=== PATIENT | male | born 1965 | race Caucasian/White ===

== ENCOUNTER 2021-04-22 12:52 | Outpatient (REF) | payer OTHER, SELFPAY ==
[2021-04-22 14:27] LABS: Appearance Urine CLEAR; Color Urine YELLOW; Glucose Urine UA NEG (NEG); Leukocyte Esterase Urine NEG (NEG); Nitrite Urine NEG (NEG); PH 5.5 (5.0-8.0); Specific Gravity - Urine >= 1.030 (1.005-1.025); Urine Blood TRACE (NEG); Urine Ketones NEG (NEG); Urine Protein NEG (NEG-TRACE)
[2021-04-22 14:35] LABS: Mucus Urine TRACE /LPF; RBC Urine 0-2 /HPF (0); WBC Urine 0-2 /HPF (0-4)
[2021-04-22 14:42] LABS: Alanine Aminotransferase 24 U/L (0-40); Albumin Level 4.3 g/dL (3.5-5.0); Alkaline Phosphatase 80 U/L (39-117); Anion Gap 13 (12-20); Aspartate Amino Transferase 22 U/L (5-37); Bilirubin Total 0.2 mg/dL (0.0-1.0); Blood Urea Nitrogen 15 mg/dL (9-16); Calcium 9.5 mg/dL (8.4-10.2); Carbon Dioxide 24 mmol/L (22-29); Chloride 103 mmol/L (96-108); Cholesterol 302 mg/dL; Estimated Glomerular Filt Rate > 60; Glucose Fasting 95 mg/dL (60-99); HDL Cholesterol 72 mg/dL; LDL Cholesterol Calculated 158 mg/dl; Potassium 4.4 mmol/L (3.3-5.1); Sodium 136 mmol/L (135-145); Total Protein 7.1 g/dL (6.5-8.0); Triglycerides 360 mg/dL
[2021-04-22 15:02] LABS: Prostate Specific Antigen Scr 0.25 ng/mL (<0.05-4.0); TSH reflex Free T4 0.44 uIU/mL (0.32-4.0)
[2021-04-22 15:27] LABS: Creatinine Urine 137.92 mg/dL; Microalbum/Creatinine Ratio Ur 11.6 ug/mg cr
== END 2021-04-22 12:53 | disposition home or self-care (01) ==
LOC: HO.WFDLDS 12:52
PROVIDERS: Visit Provider Family Medicine
DX: Z00.00 Encounter for general adult medical examination without abnormal findings (principal); Z12.5 Encounter for screening for malignant neoplasm of prostate; I10 Essential (primary) hypertension
CPT/HCPCS: 36415; 80053; 80061; 81001; 82043; 84153; 84443

== ENCOUNTER 2021-08-31 11:02 | Outpatient (REF) | payer OTHER, SELFPAY ==
[2021-08-31 14:26] LABS: Cholesterol 317 mg/dL; HDL Cholesterol 66 mg/dL; Triglycerides 563 mg/dL
== END 2021-08-31 11:03 | disposition home or self-care (01) ==
LOC: HO.WFDLDS 11:02
PROVIDERS: Visit Provider Family Medicine
DX: Z00.00 Encounter for general adult medical examination without abnormal findings (principal)
CPT/HCPCS: 36415; 80061

== ENCOUNTER 2023-10-14 13:57 | Outpatient (AMB) | payer BC, SELFPAY ==
--- NOTE | 2023-10-14 14:13 | A.OFFPC_ITS ---
Vital Signs 10/14/23 14:14 Height 5 ft 9 in Weight 182 lb 8 oz BMI 26.9 BP 100/56 L Blood Pressure Location Rt brachial Position Sitting Respiration 16 Pulse 87 Pulse Source Pulse Oximeter Temp 96.5 F L Temp Source Tympanic Pulse Oximetry (%) 97 Oxygen Delivery Method Room Air Intake Visit Reasons: hdfu and fam med leave act paperwork Intake Note: FMLA paper work Allergies No Known Allergies Allergy (Verified 10/14/23 14:13) Tobacco use date assessed: 03/16/22 HPI hdfu and fam med leave act paperwork HPI Details Pt was admitted to [facility] on 09/29/2023 to 10/07/2023 for Suicidal ideations with a plan, Alcohol abuse, depression/Anxiety with acute adjustment disorder. Discharged on: Sertraline 100 mg daily gabapentin 300 mg b.i.d. nicotine patch 21 mg daily Lipitor 10 mg daily trazodone 50 mg at bedtime naltrexone 50 mg daily He notes he has an appt. with a mental health provider late December. He states he has not had a drink recently. Notes ongoing brain fogginess and poor motivation. Denies any SI/HI today. HPI Comments History of Present Illness Details Documentation assistance for Mekhi Muñoz MD, was provided by Max Brooks, [employer] on 10/14/2023 at 2:45 PM EST. I, Dr. Muñoz, have read, observed, and verified documentation. FORMERLY [facility] Social History Housing: House Patient Tobacco Use Status: Current everyday Tobacco user Cigarette Packs Per Day: 1 e-Cigarette/Vaping Use: Never Used Second Hand Smoke Exposure: No service: Yes Current occupational status: employed Current occupational exposures/hazards: No Cognitive needs: No Hearing needs: No Vision needs: No Questionnaire LORRAINE-7 AMB Questionnaire LORRAINE-7 Date LORRAINE - 7 assessed: 08/18/21 Source: Developed by Drs. Bharat Hassan, Rachana Casas, Jose Madden and colleagues, with an educational charlette from [employer]. Review of Systems Const Denies chills, Denies fatigue, Denies fever(s), Denies headache(s) and Denies weakness ENT Denies dizziness and Denies headache(s) Card Denies chest pain, Denies lightheadedness, Denies dyspnea and Denies other (Palpitations) Resp Denies cough, Denies dyspnea, Denies wheezing and Denies other ( shortness of breath) Musc Denies numbness and Denies tingling Neuro Denies dizziness, Denies headache(s), Denies numbness, Denies tingling, Denies paresthesias and Denies weakness Psych Denies anxiety and Reports depression Endo Denies fatigue Aller/Immun Denies wheezing Physical exam (Primary Care) Vital Signs: Last Vital Signs Temp 96.5 F L 10/14/23 14:14 Pulse 87 10/14/23 14:14 Resp 16 10/14/23 14:14 BP 100/56 L 10/14/23 14:14 Pulse Ox 97 10/14/23 14:14 Oxygen Delivery Method Room Air 10/14/23 14:14 BMI result Body Mass Index 26.9 Tobacco/Smoking Status: Tobacco use Status Tobacco use date assessed 03/16/22 10/14/23 14:16 Patient Tobacco Use Status Current everyday Tobacco 10/14/23 14:16 e-Cigarette/Vaping Use Never Used 10/14/23 14:16 Const General: no acute distress and well developed Nutritional Appearance: well nourished Orientation/consciousness: patient oriented x3 HENMT Head: Yes normocephalic and Yes atraumatic Eyes General: appearance normal, both eyes and all related structures Pupils: Equal, round and reactive pupils present EOM: EOMs intact bilaterally Resp Effort & Inspection: normal respiratory effort Auscultation: clear to auscultation bilaterally Cardio Rate: regular rate Rhythm: regular rhythm Heart sounds: S1 normal heart sound present, S2 normal heart sound present, no gallops, no murmurs and no rubs Neuro General: patient oriented x3 and gait normal Cranial nerves: Yes Equal, round and reactive pupils present Psych Affect: normal affect Assessment and Plan Assessment & Plan (1) Depression with anxiety: Code(s): F41.8 - Other specified anxiety disorders Plan: Severe?depression?with?recent?SI?and?plan. Patient?was?admitted?from?September??to?September??as?inpatient. Medications: Sertraline 100 mg daily gabapentin 300 mg b.i.d. nicotine patch 21 mg daily Lipitor 10 mg daily trazodone 50 mg at bedtime naltrexone 50 mg daily Continue?as?prescribed. He?has?an?appointment?with?psychiatrist/therapist?but?not?until?December. I?am?referring?him?to?the?[facility]?outpatient?psychiatry?consult?team. I?am?keeping?him?out?of?work?through?December?so?he?has?time?to?be?established?w ith?permanent?behavioral?health?team. Advised?he?should?consider?an intensive?outpatient?partial?program?and?he?can?discuss?this?further?with?the?Ps ychiatry?consult?team Filled?out?FMLA?paperwork?to?keep?patient?out?through?the?end?of?December. (2) Alcohol abuse: Code(s): F10.10 - Alcohol abuse, uncomplicated Plan: Continue?naltrexone Follow-up?with?behavioral?health?team Remain?abstinent (3) Suicidal ideation: Code(s): R45.851 - Suicidal ideations Plan: As?above No?current?SI?or?plan Contracts?for?safety Orders: Referrals Psychiatry Outpatient Consultation Service F10.10 - Alcohol abuse, uncomplicated, F41.8 - Other specified anxiety disorders, R45.851 - Suicidal ideations Coding Level of Care Code Est Pt Level 4 (02219) Diagnoses Depression with anxiety F41.8 Alcohol abuse F10.10 Suicidal ideation R45.851
[2023-10-14 14:14] VITALS: BP 100/56; PULSE 87; RESP 16; TEMP 35.8; O2SAT 97; BMI 26.9
== END 2023-10-14 15:14 | disposition home or self-care (01) ==
PROVIDERS: PCP Family Medicine; Visit Provider Family Medicine
DX: F41.8 Other specified anxiety disorders (principal); F10.10 Alcohol abuse, uncomplicated; R45.851 Suicidal ideations
CPT/HCPCS: 99214

== ENCOUNTER 2023-11-01 08:45 | Outpatient (RCR) | payer BC, SELFPAY ==
[2023-10-19 09:43] VITALS: BMI 25.6
[2023-10-19 11:45] VITALS: BP 132/77; PULSE 64
--- NOTE | 2023-10-19 13:35 | PC.ADMIT ---
Patient is a 57 year old single male who was referred to [facility] by [employer] employee Lita Perdomo secondary to depression and anxiety. Patient reports thoughts to drive car into concrete however denied any plans of intention of doing this. Patient recently discharged from [facility] where he was admitted from 09/28-10/07/23 secondary to SI with a plan after break up with partner in February 2023 with partner moving out of his house in July 2023 after being together for 18 years. Patient struggling with chronic alcohol use and reports use increased when he and his partner where starting to have relationship issues 4 years ago. He stopped using alcohol September 27, 2023. At that time he was drinking 8-10 beers daily and taking 1-2 shots of whiskey once or twice a week. Patient is on MAT with Naltrexone and stated this medication has helped him stop using. He currently is not involved in AA however is thinking about going for more support. Patient reports prior to hospitalization he googled [employer] Suicide Hotline d/t having suicidal thoughts and they recommended he go to the emergency room for a crisis evaluation which he did thus was admitted to a behavioral health unit. He stated he did not experience any sxs of withdrawal from alcohol while in the hospital. Denied any tremors, diaphoresis, headaches, nausea or vomiting, no AH, No VH. He denied any current withdrawal sxs. VS BP 132/77 P 64. He is currently on a DOUG from work to work on mental health. Would like to go back to work as soon as he can. Stated he has been out of work since September 29, 2023. Stated his work is supportive regarding his mental health issues. He works as a trailer truck driver. Patient is alert and oriented x4. Calm and cooperative. His thoughts are logical and clear. Regarding SI patient denied any current thoughts. He stated he has had thoughts to drive his car into a concrete wall. Denied having any plans of intention to do this. Reports when he has those thoughts he tells himself to, knock it off you have come this far . He was given a copy of his safety plan if needed. Medications reconciled with patient and patient's pharmacy. He also brought in his prescription bottles to verify his medications. He stated in the process he dropped some of the medication pills accidentally down the sink drain and now is out of Sertraline. He is going to talk to [facility] prescriber about filling this tomorrow. He reports taking medications as prescribed.
--- NOTE | 2023-10-20 15:07 | HO.PHP ---
Pt's case has been opened and reviewed in treatment team.
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
--- NOTE | 2023-10-26 14:06 | HO.PHP ---
PHP staff member faxed over a referral for OP therapy and med management for Bartolo. PHP staff member is awaiting a scheduled appointment dates and times.
--- NOTE | 2023-10-28 09:55 | HO.PHP ---
PHP staff member received an email from [facility] with Bartolo's after care appointments for OP therapy and Med Management. Bartolo's OP therapy intake appointment is scheduled for November 08, 2023 at 10 AM with Sadia Rubalcava at [address] [place] [address]. Bartolo's med provider appointment is scheduled for December 07, 2023 at 9 AM with Bethany Real at [address] [place] [address], [place], [place].
--- NOTE | 2023-10-28 21:13 | HO.PHPPROGNO ---
Subjective Subjective Date of Service: 10/27/23 Reason For Visit: MDD,AUD Interim History: Patient seen for follow-up. No acute issues or concerns reported by staff. It's been okay . Patient started on Wellbutrin, he noticed feeling a little sped up the first day starting the medication, more alert, mind was racing for a few hours but eventually abated. Denies any issues with physical symptoms or anxiety. Says these effects were less noticable the next day, and since he feels he has adjusted. He was mindful after that first day to eat adequately as we had initially discussed and that seemed to help. He says he feels more level and calmer in my thoughts . When asked about any change in anger or irritability he says there are 3 people in the group that really annoy me but that's not unusual for me. People annoy me . Denies any aggressive ideation or HI. He feels more awake and energetic through the day which is good . He endorses some difficulty falling asleep, continues to take trazodone 50 mg at night (around 9 or 10pm) and says once he falls asleep he has been sleeping well, getting a full 8 hours. Denies any AH or VH. Physically feels fine, no complaints. Med compliant, continues on naltrexone. Occasional cravings not too bad , a few times a week at most, but says he feels capable of managing and does not feel he is going to relapse. Says he tries not to think too far ahead. He denies any other substance use. He also says returning to work provides some guardrails and structure. He denies any stressors at his job and says I'm good at my job. They can't wait to have me back . Medication Compliance: Yes Side effects from medications: Yes (sexual side effects from SSRI, thus far not improved with WB) Attending Groups: Yes Review of Systems Acute medical concerns: No Mental Status Exam Mental Status Exam Narrative: Alert, oriented, in no acute distress. Less guarded, more engaged. Cooperative. Normal gait, no tics or tremors. Eye contact maintained. Mood less depressed, affect less constricted, no irritability noted. Speech normal. Thought process linear, coherent. Thought content related to stressors, occasional cravings, denies SI or HI. No paranoia or delusional content elicited. No evidence of psychosis. Insight and judgment - fair but adequate. Diagnostics Vital Signs (24Hr): BMI result Body Mass Index 25.6 Assessment & Plan Assessment & Plan (1) Alcohol dependence: Status: Acute Code(s): F10.20 - Alcohol dependence, uncomplicated (2) MDD (major depressive disorder), recurrent severe, without psychosis: Status: Acute Code(s): F33.2 - Major depressive disorder, recurrent severe without psychotic features (3) Chronic post-traumatic stress disorder (PTSD): Status: Acute Code(s): F43.12 - Post-traumatic stress disorder, chronic (4) LORRAINE (generalized anxiety disorder): Status: Acute Code(s): F41.1 - Generalized anxiety disorder Plan continue Wellbutrin XL 150 mg qam continue other regular medications? continue Zoloft 100 mg qd may increase trazodone to 50-100 mg qhs prn, try moving up dose 1-2 hrs earlier continue gabapentin 300 mg BID continue naltrexone 50 mg qd continue atorvastatin 10 mg qhs nicotine patch routine lab work pending UDS as indicated continue to monitor Patient educated on: diagnosis, medication risk/benefits and substance abuse Informed Consent: understands Reason for contiued partial hosp. stay Substantial Risk for: med/psych decompensation Certification I certify that partial hospital treatment is medically necessary due to the symptoms and problems resulting from the patient's mental illness and the failure to treat the patient at the partial hospital level of care would likely result in the patient requiring inpatient psychiatric care which could not be prevented at a less intensive level of care. Total time managing care of this patient today _30___ minutes. Discharge Plan Discharge Attending provider: Aliya Blake Additional Instructions: Bartolo's OP therapy intake appointment is scheduled for November 08, 2023 at 10 AM with Sadia Rubalcava at [address], [place]. Bartolo's med provider appointment is scheduled for December 07, 2023 at 9 AM with Bethany Real at [address] [place] [address]. Medications: New polyethylene glycol 3350 [Miralax] 17 gram/dose powder 17 g PO DAILY Qty: 119 0RF Continued atorvastatin 10 mg tablet 10 mg PO BEDTIME nicotine 21 mg/24 hr patch 24 hour 1 patch topical DAILY naltrexone 50 mg tablet 50 mg PO DAILY Qty: 30 0RF sertraline 100 mg tablet 100 mg PO DAILY Qty: 30 0RF gabapentin 300 mg capsule 300 mg PO BID Qty: 30 0RF bupropion HCl [Wellbutrin XL] 150 mg tablet extended release 24 hr 150 mg PO QAM Qty: 30 0RF Rx Instructions: take in the AM with food (and avoid coffee) for at least the first week Changed trazodone 50 mg tablet 50 - 100 mg PO BEDTIME PRN (Reason: insomnia) Qty: 30 0RF Stand Alone Forms: Patient Portal Discharge page Print Language: Bermudian
--- NOTE | 2023-11-01 21:29 | P.PNPSP_ITS ---
Subjective Subjective Date of Service: 11/01/23 Reason For Visit: MDD,AUD Interim History: Patient seen for follow-up, anticipating discharge at the end of program today.? Reports no acute issues or concerns. Medication compliant, medications well- tolerated. Denies any adverse effects.?He voices appreciation for the staff and for the program. I didn't 'get it' when I started here. Seemed I was starting in the middle of things...kind of frustrating. But eventually I caught on and now I see how it all works... it's been really helpful . He says he was able to get his thoughts and feelings out and talk things through so it was good . He has found the Wellbutrin to be helpful with his overall mood, denies any depression, improvements in energy, motivation and feeling more alert and involved with what's going on around him. Denies any adverse effects. He continues to endorse sexual dysfunction which he has been experiencing since being on the ZOloft. He is encouraged to revisit this issue with his new provider and they might consider decreasing the dose to see if this helps, or possibly transitioning him onto more of the Wellbutrin and less Zoloft if tolerated. He denies any alcohol use in the interim. Denies cravings at this time. He recognizes he has a ways to go in recovery. He is eager to return to work and will be reaching out to his PCP (who submitted the FMLA) for a return to work letter. Mood is stable.? Denies any hopelessness or SI. Denies thoughts of harming self or others at this time. Denies any aggressive ideation or HI. Denies any paranoia or AH or VH. Sleep, appetite, energy stable. Medication Compliance: Yes Side effects from medications: No Attending Groups: Yes Review of Systems Acute medical concerns: No Mental Status Exam Mental Status Exam Narrative: Alert, oriented, in no acute distress. Calm, cooperative. Mood stable, affect appropriate. Speech normal. Thought process linear, coherent, more goal- directed. Thought content related to stressors, future-oriented, denies any helplessness, hopelessness or SI.? No aggressive ideation or HI. No paranoia or delusional content elicited. No evidence of psychosis. Insight and judgment fair-good. Diagnostics Vital Signs (24Hr): BMI result Body Mass Index 25.6 Assessment & Plan Assessment & Plan (1) Alcohol dependence: Status: Acute Code(s): F10.20 - Alcohol dependence, uncomplicated (2) MDD (major depressive disorder), recurrent severe, without psychosis: Status: Acute Code(s): F33.2 - Major depressive disorder, recurrent severe without psychotic features (3) Chronic post-traumatic stress disorder (PTSD): Status: Acute Code(s): F43.12 - Post-traumatic stress disorder, chronic (4) LORRAINE (generalized anxiety disorder): Status: Acute Code(s): F41.1 - Generalized anxiety disorder Plan Discharge from PHP cont Wellbutrin XL 150 mg qam continue other regular medications? continue Zoloft 100 mg qd continue trazodone 50 mg qhs continue gabapentin 300 mg BID continue naltrexone 50 mg qd continue atorvastatin 10 mg qhs nicotine patch Routine lab work pending and was not done Safety planning reviewed Will defer further medication management to outpatient provider - new psych provider appointment on 12/06 Patient at psychiatric baseline, patient is aware to call [facility] if refills needed prior to 12/06 Discharge paperwork signed and given to patient, copy sent for scanning to chart Patient educated on: diagnosis, medication risk/benefits and substance abuse Informed Consent: understands Reason for contiued partial hosp. stay Substantial Risk for: stable for discharge Certification I certify that partial hospital treatment is medically necessary due to the symptoms and problems resulting from the patient's mental illness and the failure to treat the patient at the partial hospital level of care would likely result in the patient requiring inpatient psychiatric care which could not be prevented at a less intensive level of care. Total time managing care of this patient today _30___ minutes. Discharge Plan Discharge Attending provider: Aliya Blake Additional Instructions: [facility] therapy intake appointment is scheduled for November 08, 2023 at 10 AM with Sadia Rubalcava at [address] [facility], [place], [place]. [facility] med provider appointment is scheduled for December 07, 2023 at 9 AM with Bethany Real at [address] [place] [address]. Medications: New polyethylene glycol 3350 [Miralax] 17 gram/dose powder 17 g PO DAILY Qty: 119 0RF Continued atorvastatin 10 mg tablet 10 mg PO BEDTIME nicotine 21 mg/24 hr patch 24 hour 1 patch topical DAILY naltrexone 50 mg tablet 50 mg PO DAILY Qty: 30 0RF sertraline 100 mg tablet 100 mg PO DAILY Qty: 30 0RF gabapentin 300 mg capsule 300 mg PO BID Qty: 30 0RF bupropion HCl [Wellbutrin XL] 150 mg tablet extended release 24 hr 150 mg PO QAM Qty: 30 0RF Rx Instructions: take in the AM with food (and avoid coffee) for at least the first week Changed trazodone 50 mg tablet 50 - 100 mg PO BEDTIME PRN (Reason: insomnia) Qty: 30 0RF Stand Alone Forms: Patient Portal Discharge page Print Language: Azeri
== END 2023-11-01 23:59 | disposition home or self-care (01) ==
LOC: HO.PHPA 08:45
PROVIDERS: Visit Provider Psychiatry & Neurology Psychiatry
DX: F33.2 Major depressive disorder, recurrent severe without psychotic features (principal); F43.12 Post-traumatic stress disorder, chronic; F41.1 Generalized anxiety disorder; F10.20 Alcohol dependence, uncomplicated; Z79.899 Other long term (current) drug therapy
CPT/HCPCS: 90791; 90853

== ENCOUNTER 2023-11-04 13:45 | Outpatient (AMB) | payer BC, SELFPAY ==
--- NOTE | 2023-11-04 13:40 | MHC.PC.OV ---
Vital Signs 11/04/23 13:44 Height 5 ft 9 in Weight 181 lb 2 oz BMI 26.7 BP 100/60 Blood Pressure Location Lt brachial Position Sitting Respiration 10 L Pulse 96 Pulse Source Pulse Oximeter Temp 97.7 F Temp Source Oral Pulse Oximetry (%) 96 Oxygen Delivery Method Room Air Intake Visit Reasons: f/u depression, labs Intake Note: depression f/u Allergies No Known Allergies Allergy (Verified 11/04/23 13:43) Medication List - Last Reconciled 11/04/23 by Mekhi Muñoz MD atorvastatin 10 mg PO BEDTIME bupropion HCl XL (Wellbutrin XL) 150 mg PO QAM gabapentin 300 mg PO BID naltrexone 50 mg PO DAILY nicotine 1 patch topical DAILY polyethylene glycol 3350 (Miralax) 17 grams PO DAILY sertraline 100 mg PO DAILY trazodone 50 - 100 mg (1 - 2 x 50 mg) PO BEDTIME PRN Tobacco use date assessed: 03/16/22 HPI f/u depression, labs HPI Details 58 y/o male presents to f/u anxiety/depression. Has had severe depression with recent SI and plan. No recent labs to review. Continues taking bupropion 150mg, sertraline 100mg daily and trazodone for mood. PHQ-9 7, LORRAINE-7 14 today. Pt has completed 10 day partial program. Has an intake with his new therapist in November and appt. with psychiatrist in December 06. Reports he has been having some ED. He notes he has not had a drink since September. HPI Comments History of Present Illness Details Documentation assistance for Mekhi Muñoz MD, was provided by Max Brooks,? Policy Services Representative on 11/04/2023 at 2:17 PM EST. I, Dr. Muñoz, have read, observed, and verified documentation. [facility] Medical History (Updated 11/04/23 @ 14:12 by Max Brooks) Concussion Elevated cholesterol Frequent headaches Surgical History (Updated 10/19/23 @ 09:42 by Kim Tom RN) H/O hand surgery Social History Household Members: Other Household Members Other:: His dog Housing: House Comment: D/C 10/31 Patient Tobacco Use Status: Current everyday Tobacco user Cigarette Packs Per Day: 1 e-Cigarette/Vaping Use: Never Used Second Hand Smoke Exposure: No service: Yes Current occupational status: employed Current occupational exposures/hazards: No Cognitive needs: No Hearing needs: No Vision needs: No Questionnaire PHQ-9 Over the last 2 weeks, how often have you been bothered by any of the following problems? 1. Little interest or pleasure in doing things: several days 2. Feeling down, depressed, or hopeless: several days 3. Trouble falling or staying asleep, or sleeping too much: not at all 4. Feeling tired or having little energy: not at all 5. Poor appetite or overeating: nearly every day 6. Feeling bad about yourself - or that you are a failure or have let yourself or your family down: several days 7. Trouble concentrating on things, such as reading the newspaper or watching television: not at all 8. Moving or speaking so slowly that other people could have noticed. Or the opposite - being so fidgety or restless that you have been moving around a lot more than usual: several days 9. Thoughts that you would be better off or of hurting yourself in some way: not at all Total score: 7 Depression Screening Interpretation: Positive Depression Screening Done: Yes 21859 - PHQ-9 Billing: Yes Source: Developed by Drs. Bharat Hassan, Jose Balderas and colleagues, with an educational charlette from [employer]. LORRAINE-7 AMB Questionnaire LORRAINE-7 Date LORRAINE - 7 assessed: 11/04/23 Feeling nervous, anxious, or on edge: 1 = Several days Not being able to stop or control worryin = Nearly every day Worrying too much about different things: 3 = Nearly every day Trouble relaxin = Nearly every day Being so restless that it is hard to sit still: 2 = More than half the days Becoming easily annoyed or irritable: 2 = More than half the days Feeling afraid as if something awful might happen: 0 = Not at all Total LORRAINE-7 score (0-4 normal; 5-9 mild; 10-14 moderate; 15-21 severe): 14 Source: Developed by Rachana Aguilar Kurt Kroenke and colleagues, with an educational charlette from [employer]. Review of Systems Const Denies chills, Denies fatigue, Denies fever(s), Denies headache(s) and Denies weakness ENT Denies dizziness and Denies headache(s) Card Denies dyspnea Resp Denies cough, Denies dyspnea, Denies wheezing and Denies other (shortness of breath) Musc Denies numbness and Denies tingling Neuro Denies dizziness, Denies headache(s), Denies numbness, Denies tingling and Denies weakness Psych Reports anxiety and Reports depression Endo Denies fatigue Aller/Immun Denies wheezing Physical exam (Primary Care) Vital Signs: Last Vital Signs Temp 97.7 F 11/04/23 13:44 Pulse 96 11/04/23 13:44 Resp 10 L 11/04/23 13:44 BP 100/60 11/04/23 13:44 Pulse Ox 96 11/04/23 13:44 Oxygen Delivery Method Room Air 11/04/23 13:44 BMI result Body Mass Index 26.7 Tobacco/Smoking Status: Tobacco use Status Tobacco use date assessed 03/16/22 11/04/23 13:50 Patient Tobacco Use Status Current everyday Tobacco 11/04/23 13:50 e-Cigarette/Vaping Use Never Used 11/04/23 13:50 PHQ-9: PHQ-9 Score PHQ-9: Total score 7 11/04/23 14:00 Depression Screening Interpretation: Positive Const General: well developed; No acute distress Nutritional Appearance: well nourished Orientation/consciousness: patient oriented x3 HENMT Head: Yes normocephalic and Yes atraumatic Eyes General: appearance normal, both eyes and all related structures Pupils: Equal, round and reactive pupils present EOM: EOMs intact bilaterally Resp Effort & Inspection: normal respiratory effort Neuro General: patient oriented x3 and gait normal Cranial nerves: Yes Equal, round and reactive pupils present Psych Affect: normal affect Assessment and Plan Assessment & Plan (1) Depression with anxiety: Code(s): F41.8 - Other specified anxiety disorders Plan: Ongoing?depression?and?anxiety. Patient completed?a?10?day?partial?program. Medications?have?been?adjusted;?he?is?now?also?taking?bupropion?along?with?sertraline?and?trazodone. He?has?been?abstinent?of?alcohol?and?I?encouraged?him?to?continue?this He?has?another?appointment on?11/07/2023 He?has?an?intake?with?his?new?therapist on??an?appointment?with?his?psychiatrist?on?. I?fill?out?FMLA?paperwork?for?him?and?have?been?keeping?him?out?of?work?potentially?through?. Will?get?him?back?next?Tuesday?as his?partner?is?coming?back?from?out?of?state?and?they?will?be?discussing whether?they?get?back?together?or?not. This?was?a?significant?issue?for?the?patient?and?what set?off?emotional?decompensation?in?the?1st?place. ?I?will?be?seeing?him?the?day?after?his?partner?returns. He?had?been?asking?when?I?thought?he?might?be?ready?to?return?to?work. We?can?discuss?this?further?after?his?next?visit. Continue?medications?as?prescribed Follow-up?with?all?behavioral?health?providers?as?scheduled Remain?abstinent?from?alcohol Following?closely (2) Chronic post-traumatic stress disorder (PTSD): Code(s): F43.12 - Post-traumatic stress disorder, chronic Plan: As?above (3) Erectile dysfunction: Code(s): N52.9 - Male erectile dysfunction, unspecified Plan: Patient?was?wondering?if?his?medications?might?be?causing?ED Discussed?with?him?that?SSRIs?generally?cause delayed?orgasm?or?changes?in?orgasm?but?unlikely?to?cause?ED. Likely?this?is?due?to?stress/anxiety We?can?discuss?further?at?his?next?appointment (4) Alcohol abuse: Code(s): F10.10 - Alcohol abuse, uncomplicated Plan: Encouraged?continue?abstinence Follow-up?with?behavioral?health?team Orders: Orders Complete Blood Count Auto Diff Today Z00.00 - Encounter for general adult medical examination without abnormal findings Lipid Panel Today Z00.00 - Encounter for general adult medical examination without abnormal findings Microalbumin, Random (w Creat) Today I10 - Essential (primary) hypertension Comprehensive [place]. Panel Fast Today Z00.00 - Encounter for general adult medical examination without abnormal findings Prostate Specific Antigen Scr Today Z12.5 - Encounter for screening for malignant neoplasm of prostate UA and rflx microscopic Today Z00.00 - Encounter for general adult medical examination without abnormal findings TSH reflex Free T4 Today Z00.00 - Encounter for general adult medical examination without abnormal findings Vitamin B12 and Folate Today E53.8 - Deficiency of other specified B group vitamins Medications: Changed From nicotine 1 patch topical DAILY To nicotine 1 patch topical DAILY 28 days 28 ea 4RF Coding Level of Care Code Est Pt Level 4 (65048) Diagnoses Depression with anxiety F41.8 Chronic post-traumatic stress disorder (PTSD) F43.12 Erectile dysfunction N52.9 Alcohol abuse F10.10
[2023-11-04 13:44] VITALS: BP 100/60; PULSE 96; RESP 10; TEMP 36.5; O2SAT 96; BMI 26.7
== END 2023-11-04 16:38 | disposition home or self-care (01) ==
PROVIDERS: PCP Family Medicine; Visit Provider Family Medicine
DX: F41.8 Other specified anxiety disorders (principal); F43.12 Post-traumatic stress disorder, chronic; N52.9 Male erectile dysfunction, unspecified; F10.10 Alcohol abuse, uncomplicated

== ENCOUNTER → 2023-11-04 13:45 | Outpatient (BNVA) | payer BC, SELFPAY | PROVIDERS: PCP Family Medicine; Visit Provider Family Medicine | DX: F41.8 Other specified anxiety disorders (principal); F43.12 Post-traumatic stress disorder, chronic; N52.9 Male erectile dysfunction, unspecified; F10.10 Alcohol abuse, uncomplicated | CPT/HCPCS: 96127 ==

== ENCOUNTER 2023-11-07 08:10 | Outpatient (REF) | payer BC, SELFPAY ==
[2023-11-07 11:31] LABS: Appearance Urine Clear; Color Urine Yellow; Glucose Urine UA Negative (Negative); Leukocyte Esterase Urine Negative (Negative); Nitrite Urine Negative (Negative); Urine Blood Negative (Negative); Urine Ketones Negative (Negative); Urine Protein Negative (Neg-Trace)
[2023-11-07 11:48] LABS: MANUAL DIFF FLAG NO
[2023-11-07 12:02] LABS: Basophils Percent Auto 0.6 % (0-2); Eosinophils Absolute Auto 0.1 X10*3/uL (0.0-0.4); Eosinophils Percent Auto 1.3 % (0-4); Hematocrit 41.4 % (42.0-52.0); Hemoglobin 14.2 g/dl (14.0-18.0); Imm Gran Abs Auto 0.01 X10*3/uL (0.00-0.03); Imm Gran Pct Auto 0.1 % (0.0-0.4); Lymphocytes Percent Auto 30.2 % (20-40); Mean Corpuscular HGB Conc 34.3 g/dl (31.0-36.0); Mean Corpuscular Hemoglobin 31.1 pg (27.0-33.0); Mean Corpuscular Volume 90.6 fL (80.0-98.0); Mean Platelet Volume 9.2 fL (9.4-12.4); Monocytes Absolute Auto 0.7 X10*3/uL (0.1-1.2); Neutrophils Absolute Auto 3.9 x10*3/uL (2.0-8.3); Neutrophils Percent Auto 57.8 % (45-73); Platelet Count 299 X10*3/uL (160-400); Red Blood Count 4.57 X10*6/uL (4.60-5.80); Red Cell Distribution Width 13.2 % (11.0-16.0); White Blood Count 6.7 X10*3/uL (4.8-10.8)
[2023-11-07 12:33] LABS: Alanine Aminotransferase 27 U/L (0-40); Albumin Level 4.2 g/dL (3.5-5.0); Alkaline Phosphatase 93 U/L (39-117); Anion Gap 10 (12-20); Aspartate Amino Transferase 19 U/L (5-37); Bilirubin Total 0.3 mg/dL (0.0-1.0); Blood Urea Nitrogen 16 mg/dL (9-16); Calcium 9.6 mg/dL (8.4-10.2); Carbon Dioxide 24 mmol/L (22-29); Chloride 108 mmol/L (96-108); Cholesterol 161 mg/dL (<200); Estimated Glomerular Filt Rate > 60; Glucose Fasting 101 mg/dL (60-99); HDL Cholesterol 66 mg/dL (>40); LDL Cholesterol Calculated 84 mg/dL (<100); Potassium 4.1 mmol/L (3.3-5.1); Sodium 138 mmol/L (135-145); Total Protein 6.8 g/dL (6.5-8.0); Triglycerides 59 mg/dL (<150)
[2023-11-07 12:38] LABS: Creatinine Urine 95.46 mg/dL; Microalbumin Urine < 5.0 mg/L
[2023-11-07 12:50] LABS: TSH reflex Free T4 0.47 uIU/mL (0.32-4.0)
[2023-11-07 12:52] LABS: Folate 8.7 ng/mL (> or = 4.0); Vitamin B12 444 pg/mL (200-900)
== END 2023-11-07 08:11 | disposition home or self-care (01) ==
LOC: HO.WFDLDS 08:10
PROVIDERS: Visit Provider Family Medicine
DX: Z00.00 Encounter for general adult medical examination without abnormal findings (principal); I10 Essential (primary) hypertension; Z12.5 Encounter for screening for malignant neoplasm of prostate; E53.8 Deficiency of other specified B group vitamins
CPT/HCPCS: 36415; 80053; 80061; 81003; 82043; 82570; 82607; 82746; 84153; 84443; 85025

== ENCOUNTER 2023-11-11 08:14 | Outpatient (AMB) | payer BC, SELFPAY ==
--- NOTE | 2023-11-11 08:24 | A.OFFPC_ITS ---
Vital Signs 11/11/23 08:25 Height 5 ft 9 in Weight 180 lb BMI 26.6 BP 112/68 Blood Pressure Location Lt brachial Position Sitting Respiration 14 Pulse 58 Pulse Source Pulse Oximeter Temp 97.8 F Temp Source Oral Pulse Oximetry (%) 97 Oxygen Delivery Method Room Air Intake Visit Reasons: F/U Anxiety / Depression Intake Note: follow up on anxiety and depression Allergies No Known Allergies Allergy (Verified 11/11/23 08:24) Tobacco use date assessed: 03/16/22 HPI F/U Anxiety / Depression HPI Details 58 y/o male presents this?morning?for?fo llow- up?anxiety?and?depression?and?alcohol?abuse. Had?completed?10?day?partial?program?and?I?have?been?keeping?him?out?of?work?due ?to?severe?anxiety?depression?and?prior?alcohol?abuse. He?had?an?appointment?on?October??with intake for PSY He?had?told?me?last?visit?that?his?former?partner?was?returning?from?out?of?stat e?to?discuss?getting?ba ck?together?and,?as?she?was?a?big?part?of?his?decompensation?we?decided?to?have? an?appointment?today?to?maintain?close?follow-up. Had his intake with his therapist and had an appt. with his psychiatrist. Appt. with therapist is next week. He?is?on?sertraline,?bupropion?and?trazodone. Mood currently stable. States he feels like he is ready to go back to work. [facility] Medical History (Updated 11/04/23 @ 14:12 by Max Brooks) Concussion Elevated cholesterol Frequent headaches Surgical History (Updated 10/19/23 @ 09:42 by Kim Tom RN) H/O hand surgery Social History Household Members: Other Household Members Other:: His dog Housing: House Comment: D/C 10/31 Patient Tobacco Use Status: Current everyday Tobacco user Cigarette Packs Per Day: 1 e-Cigarette/Vaping Use: Never Used Second Hand Smoke Exposure: No service: Yes Current occupational status: employed Current occupational exposures/hazards: No Cognitive needs: No Hearing needs: No Vision needs: No Questionnaire PHQ-9 Over the last 2 weeks, how often have you been bothered by any of the following problems? 1. Little interest or pleasure in doing things: not at all 2. Feeling down, depressed, or hopeless: not at all 3. Trouble falling or staying asleep, or sleeping too much: not at all 4. Feeling tired or having little energy: not at all 5. Poor appetite or overeating: several days 6. Feeling bad about yourself - or that you are a failure or have let yourself or your family down: not at all 7. Trouble concentrating on things, such as reading the newspaper or watching television: not at all 8. Moving or speaking so slowly that other people could have noticed. Or the opposite - being so fidgety or restless that you have been moving around a lot more than usual: not at all 9. Thoughts that you would be better off or of hurting yourself in some way: not at all Total score: 1 94952 - PHQ-9 Billing: Yes Source: Developed by Drs. Bharat Hassan, Rachana Casas, Jose Madden and colleagues, with an educational charlette from [employer]. LORRAINE-7 AMB Questionnaire LORRAINE-7 Date LORRAINE - 7 assessed: 11/11/23 Feeling nervous, anxious, or on edge: 0 = Not at all Not being able to stop or control worryin = Not at all Worrying too much about different things: 0 = Not at all Trouble relaxin = Not at all Being so restless that it is hard to sit still: 0 = Not at all Becoming easily annoyed or irritable: 0 = Not at all Feeling afraid as if something awful might happen: 0 = Not at all Total LORRAINE-7 score (0-4 normal; 5-9 mild; 10-14 moderate; 15-21 severe): 0 Source: Developed by Drs. Bharat Hassan, Jose Balderas and colleagues, with an educational charlette from [employer]. LORRAINE-7 Assessment Billing LORRAINE-7 Assessment Tool: LORRAINE-7 Assessment 75449 Physical exam (Primary Care) Vital Signs: Last Vital Signs Temp 97.8 F 11/11/23 08:25 Pulse 58 11/11/23 08:25 Resp 14 11/11/23 08:25 BP 112/68 11/11/23 08:25 Pulse Ox 97 11/11/23 08:25 Oxygen Delivery Method Room Air 11/11/23 08:25 BMI result Body Mass Index 26.6 Tobacco/Smoking Status: Tobacco use Status Tobacco use date assessed 03/16/22 11/11/23 08:29 Patient Tobacco Use Status Current everyday Tobacco 11/11/23 08:29 e-Cigarette/Vaping Use Never Used 11/11/23 08:29 PHQ-9: PHQ-9 Score PHQ-9: Total score 1 11/11/23 08:40 Coding Level of Care Code Est Pt Level 3 (38365) Diagnoses Depression with anxiety F41.8 Alcohol dependence F10.20 Additional Codes LORRAINE-7 Assessment Billing - LORRAINE-7 Assessment Tool: LORRAINE-7 Assessment 06793 ([id number]) Assessment & Plan Assessment & Plan (1) Depression with anxiety: Code(s): F41.8 - Other specified anxiety disorders Category: Medical Plan: Patient?is?currently?stable with?[facility]?psychiatry?consult?on?board?and? s/p ?intensive?partial?program?completed.??He?has ?had?his?intake?with?therapy?and?psychiatry?and?has?his?1st?appointment?coming?u p?this?coming?week. He?is?stable?on?bupropion,?sertraline,?naltrexone?and trazodone.??Will?continue?these?for?him?until?his?psychiatrist?takes?management. Encouraged?ongoing?abstinence?from?alcohol He?is?ready?to?return?to?work?without?restrictions. (2) Alcohol dependence: Code(s): F10.20 - Alcohol dependence, uncomplicated Category: Medical Plan: Remains abstinent and I encouraged this Orders: Orders Comprehensive [place]. Panel Fast Today E78.2 - Mixed hyperlipidemia, Z00.00 - Encounter for general adult medical examination without abnormal findings Lipid Panel Today E78.2 - Mixed hyperlipidemia, Z00.00 - Encounter for general adult medical examination without abnormal findings Medications: Refilled sertraline 100 mg PO DAILY 30 tabs 0RF depressive disorder trazodone 50 - 100 mg (1 - 2 x 50 mg) PO BEDTIME PRN 30 tabs 0RF insomnia naltrexone 50 mg PO DAILY 30 tabs 0RF
[2023-11-11 08:25] VITALS: BP 112/68; PULSE 58; RESP 14; TEMP 36.6; O2SAT 97; BMI 26.6
== END 2023-11-11 08:57 | disposition home or self-care (01) ==
PROVIDERS: PCP Family Medicine; Visit Provider Family Medicine
DX: F41.8 Other specified anxiety disorders (principal); F10.20 Alcohol dependence, uncomplicated

== ENCOUNTER → 2023-11-11 08:14 | Outpatient (BNVA) | payer BC, SELFPAY | PROVIDERS: PCP Family Medicine; Visit Provider Family Medicine | DX: F41.8 Other specified anxiety disorders (principal); F10.20 Alcohol dependence, uncomplicated | CPT/HCPCS: 96127 ==

== ENCOUNTER → 2024-02-13 15:30 | Outpatient (BNVA) | payer BC, SELFPAY | PROVIDERS: PCP Family Medicine; Visit Provider Family Medicine ==

== ENCOUNTER 2024-10-11 11:21 | Outpatient (AMB) | payer OTHER, SELFPAY ==
--- NOTE | 2024-10-11 11:27 | A.OFFPC_ITS ---
Vital Signs 10/11/24 11:31 Height 5 ft 9 in Weight 193 lb 4 oz BMI 28.5 BP 122/74 Blood Pressure Location Lt brachial Position Sitting Respiration 16 Pulse 104 H Pulse Source Pulse Oximeter Temp 97.5 F Temp Source Oral Intake Visit Reasons: [facility]/pulled groin Intake Note: patient here for ED follow up for pulled groin Management Architect Required: No Allergies No Known Allergies Allergy (Verified 10/11/24 11:29) Tobacco use date assessed: 10/11/24 Dental Screening Dental Screen Date: 10/11/24 Did you have a dental visit in the last 12 months?: No Did you have a dental problem in the last 6 months where you did not have access to dental care?: No Was dental information given to patient?: No HPI [facility]/pulled groin HPI Details 58 y/o male presents to f/u ED visit 09/08 08/31 for L sided groin pain. Was evaluated in ED on 09/29/[address] that was reassuring but continued o have pain and discomfort. They recommended to take OTC acetaminophen as needed r pain/discomfort. [facility] Medical History (Updated 10/11/24 @ 12:04 by Mekhi Muñoz MD) Concussion Elevated cholesterol Frequent headaches Surgical History (Updated 10/19/23 @ 09:42 by Kim Tom RN) H/O hand surgery Social History Household Members: Other Household Members Other:: His dog Housing: House Comment: D/C 10/31 Patient Tobacco Use Status: Current everyday Tobacco user Cigarette Packs Per Day: 1 e-Cigarette/Vaping Use: Never Used Second Hand Smoke Exposure: No service: Yes Current occupational status: employed Current occupational exposures/hazards: No Cognitive needs: No Hearing needs: No Vision needs: No Questionnaire Thrive Questionnaire Date Thrive assessed: 02/13/24 I am a: Patient What is your living situation today?: I have a steady place to live Within the past 12 months, did the food you bought not last and you didn't have the money to get more?: Never true Within the past 12 months, did you worry whether your food would run out before you got money to buy more?: Never true Do you have trouble paying for medicines?: No Do you have trouble getting transportation to medical appointments?: No Do you have trouble paying your heating and electricity bill?: No Do you have trouble taking care of your child, family member or friend?: No Do you have trouble with day-to-day activities such as bathing, preparing meals, shopping, managing finances, etc.?: No Are you currently unemployed and looking for a job?: Yes Are you interested in more education?: No Please select the resources that you would like help with: None Currently or been in a relationship where the following occur: No concerns reported THRIVE Score: 0 LORRAINE-7 AMB Questionnaire LORRAINE-7 Date LORRAINE - 7 assessed: 11/11/23 Source: Developed by Drs. Bharat Hassan, Rachana Casas, Jose Madden and colleagues, with an educational charlette from [employer]. Review of Systems Const Denies chills, Denies fatigue, Denies fever(s), Denies headache(s) and Denies weakness ENT Denies dizziness and Denies headache(s) Card Denies dyspnea Resp Denies cough, Denies dyspnea, Denies wheezing and Denies other (shortness of breath) Musc Denies numbness and Denies tingling Neuro Denies dizziness, Denies headache(s), Denies numbness, Denies tingling and Denies weakness Psych Denies anxiety and Denies depression Endo Denies fatigue Aller/Immun Denies wheezing Physical exam (Primary Care) Vital Signs: Last Vital Signs Temp 97.5 F 10/11/24 11:31 Pulse 104 H 10/11/24 11:31 Resp 16 10/11/24 11:31 BP 122/74 10/11/24 11:31 BMI result Body Mass Index 28.5 Tobacco/Smoking Status: Tobacco use Status Tobacco use date assessed 10/11/24 10/11/24 11:35 Patient Tobacco Use Status Current everyday Tobacco 10/11/24 11:27 e-Cigarette/Vaping Use Never Used 10/11/24 11:27 Thrive Assessment: Date of Thrive Assessment Date Thrive assessed 02/13/24 10/11/24 11:27 Currently or been in a relationship where the following occur: No concerns reported Const General: well developed; No acute distress Nutritional Appearance: well nourished Orientation/consciousness: patient oriented x3 HENMT Head: Yes normocephalic and Yes atraumatic Eyes General: appearance normal, both eyes and all related structures Pupils: Equal, round and reactive pupils present EOM: EOMs intact bilaterally Resp Effort & Inspection: normal respiratory effort Auscultation: clear to auscultation bilaterally Cardio Rate: regular rate Rhythm: regular rhythm Heart sounds: S1 normal heart sound present, S2 normal heart sound present, no gallops, no murmurs and no rubs Neuro General: patient oriented x3 and gait normal Cranial nerves: Yes Equal, round and reactive pupils present Psych Affect: normal affect Coding Level of Care Code Est Pt Level 3 (28244) Diagnoses Left groin pain R10.32 Assessment & Plan Assessment & Plan (1) Left groin pain: Code(s): R10.32 - Left lower quadrant pain Category: Medical Plan: Ongoing left groin pain from muscle strain He has been out of work and has been to the emergency department x2. At this point he will benefit from physical therapy and I will keep him out of work for another 2 weeks. May return on 10/29/2024. He can use ibuprofen and some Tylenol Also advised ice and heat Plan History of alcohol dependence. Patient says he has been abstinent of alcohol and I congratulated him this. Orders: Orders Comprehensive [place]. Panel Fast Today Z00.00 - Encounter for general adult medical examination without abnormal findings Complete Blood Count Auto Diff Today Z00.00 - Encounter for general adult medical examination without abnormal findings Lipid Panel Today Z00.00 - Encounter for general adult medical examination without abnormal findings Microalbumin, Random (w Creat) Today I10 - Essential (primary) hypertension TSH reflex Free T4 Today Z00.00 - Encounter for general adult medical examination without abnormal findings Vitamin B12 and Folate Today E53.8 - Deficiency of other specified B group vitamins Vitamin D 25-OH Total Today E55.9 - Vitamin D deficiency, unspecified Prostate Specific Antigen Scr Today Z12.5 - Encounter for screening for m alignant neoplasm of prostate UA CC w/rflx Micro + Cult Today Z00.00 - Encounter for general adult medical examination without abnormal findings PT Evaluation and Treatment Today R10.32 - Left lower quadrant pain, T14.8XXA - Other injury of unspecified body region, initial encounter
[2024-10-11 11:31] VITALS: BP 122/74; PULSE 104; RESP 16; TEMP 36.4; BMI 28.5
--- OUTSIDE RECORDS SUMMARY | 2024-10-11 13:02 | XMS_ITS | Clinical Summary ---
Author Organization [facility] Address [address] [place] [phone] Phone Care Team Providers Care Lead Consultant Name Role Phone Pcp, Unknown Primary Care Provider Unavailabl e Allergies No known active allergies Medications No known medications Encounters Date Type Department Care Team Description 08/23/2024 11:15 AM EDT Occupational Health [facility] at [address] [address] Bonnie Metz CNP from Last 3 Months Social History Tobacco Use Types Packs/Day Years Used Date Smoking Tobacco: Every Day Cigarettes Tobacco Cessation:Ready to Q uit: Not Asked; Counseling Given: Not Answered Alcohol Use Standard Drinks/Week Comments Yes 3 (1 standard drink = 0.6 oz pure alcohol) 2-3 beers several times a week Education Answer Date Recorded Are you interested in more education? Not on jocelyn e 06/04/2022 Are you concerned about learning? Not on file 06/04/2022 No 06/04/2022 No 06/04/2022 Digital Access Answer Date Recorded No 07/03/2022 No 07/03/2022 No 07/03/2022 Reliable internet access at home? Not on file 07/03/2022 Device with a working camera? Not on file Sex and Gender Information Value Date Recorded Sex Assigned at Not on file Legal Sex Male 9:42 PM EDT Gender Identity Not on file Sexual Orientation Not on file Last Filed Vital Signs Vital Sign Reading Time Taken Comments Blood Pressure 132/78 04/07/2022 11:43 AM EST Pulse 88 04/07/2022 11:43 AM EST Temperature - - Respiratory Rate - - Oxygen Saturation - - Inhaled Oxygen Concentration - - Weight 83.9 kg (185 lb) 04/07/2022 11:43 AM EST Height 175.3 cm (5' 9 ) 04/07/2022 11:43 AM EST Body Mass Index 27.32 04/07/2022 11:43 AM EST Plan of Treatment Health Maintenance Due Date Last Done Comments LIPID PANEL 1963 DEPRESSION SCREENING 1975 SMOKING Hx and SMOKELESS TOBACCO SCREENING 10/20/1976 HEPATITIS C SCREENING 10/20/1981 HIV ONE-TIME SCREENING (18-6 5 YEARS) 10/20/1981 PNEUMOCOCCAL VACCINES (50+ years) (1 of 2 - PCV) 10/20/1982 SCREENING FOR DIABETES 10/20/1998 COLOGUARD 10/20/2008 COLONOSCOPY 10/20/2008 COLORECTAL CANCER SCREENING 10/20/2008 FIT TEST 10/20/2008 FOBT 10/20/2008 SIGMOIDOSCOPY 10/20/2008 VIRTUAL COLONOSCOPY 10/20/2008 ZOSTER VACCINES (1 of 2) 10/20/2013 Adult Td,Tdap Booster 03/21/2022 03/21/2012 INFLUENZA VACCINE (#1) 2024 , 11/22/2021 COVID-19 VACCINE (4 - 2024-2 6 season) 2024 11/22/2021, 11/23/2020, 11/02/2020 RSV VACCINE (1 - 1-dose 75+ series) 10/20/2038 HEPATITIS A VACCINES Aged Out No long er eligible based on patient's age to complete this topic HIB VACCINES Aged Out No longer eligi ble based on patient's age to complete this topic MENINGOCOCCAL VACCINES (ACWY) Aged Out No longer eligible based on patient's age to complete this topic MENINGOCOCCAL VACCINES (B) Aged Out N o longer eligible based on patient's age to complete this topic Medical Devices Not on file Insurance CIGNA PPO CIGNA PPO CIGNA PPO CIGNA PPO CIGNA PPO CIGALTAF PPO Care Teams Lead Consultant Relationship Specialty Start Date End Date Pcp, Unknown PCP - General 03/23/22 Additional Source Comments The information contained in this document represents components of the legal health record. It is not the complete legal health record.[facility]
== END 2024-10-11 12:14 | disposition home or self-care (01) ==
LOC: HO.HMCFM 11:22
PROVIDERS: PCP Family Medicine; Visit Provider Family Medicine
DX: R10.32 Left lower quadrant pain (principal)

== ENCOUNTER → 2024-10-11 11:21 | Outpatient (BNVA) | payer OTHER, SELFPAY | PROVIDERS: PCP Family Medicine; Visit Provider Family Medicine | DX: I10 Essential (primary) hypertension (principal); R10.32 Left lower quadrant pain; E53.8 Deficiency of other specified B group vitamins; E55.9 Vitamin D deficiency, unspecified; T14.8XXA Other injury of unspecified body region, initial encounter; X58.XXXA Exposure to other specified factors, initial encounter; Y93.9 Activity, unspecified; Y92.9 Unspecified place or not applicable; Y99.9 Unspecified external cause status | CPT/HCPCS: 99212 ==

== ENCOUNTER 2024-10-12 07:37 | Outpatient (REF) | payer OTHER, SELFPAY ==
--- OUTSIDE RECORDS SUMMARY | 2024-10-12 07:40 | XMS_ITS | Clinical Summary ---
Author Organization [facility] Address [address] [place] [phone] Phone Care Team Providers Care Rn Otolaryngology Name Role Phone Pcp, Unknown Primary Care Provider Unavailabl e Allergies No known active allergies Medications No known medications Encounters Date Type Department Care Team Description 08/23/2024 11:15 AM EDT Occupational Health [facility] at [address] [address] Bonnie Metz CNP from Last 3 Months [...] PPO CIGNA PPO CIGALTAF PPO Care Teams Rn Otolaryngology Relationship Specialty Start Date End Date Pcp, Unknown PCP - General 03/23/22 Additional Source Comments The information contained in this document represents components of the legal health record. It is not the complete legal health record.[facility]
[2024-10-12 11:12] LABS: MANUAL DIFF FLAG NO
[2024-10-12 11:22] LABS: Hematocrit 41.7 % (42.0-52.0); Hemoglobin 13.8 g/dl (14.0-18.0); Imm Gran Abs Auto 0.04 X10*3/uL (0.00-0.03); Imm Gran Pct Auto 0.5 % (0.0-0.4); Lymphocytes Absolute Auto 2.0 X10*3/uL (1.2-4.9); Mean Corpuscular HGB Conc 33.1 g/dl (31.0-36.0); Mean Corpuscular Hemoglobin 28.5 pg (27.0-33.0); Mean Corpuscular Volume 86.0 fL (80.0-98.0); NRBC Abs Auto 0.000 X10*3/uL (0.0-0.012); NRBC Pct Auto 0.0 /100WBC (0.0-0.2); Platelet Count 295 X10*3/uL (160-400); Red Blood Count 4.85 X10*6/uL (4.60-5.80); White Blood Count 7.6 X10*3/uL (4.8-10.8)
[2024-10-12 11:43] LABS: Alanine Aminotransferase 31 U/L (0-40); Albumin Level 3.6 g/dL (3.5-5.0); Alkaline Phosphatase 75 U/L (39-117); Anion Gap 9 (12-20); Aspartate Amino Transferase 26 U/L (5-37); Blood Urea Nitrogen 14 mg/dL (9-16); Calcium 8.6 mg/dL (8.4-10.2); Carbon Dioxide 29 mmol/L (22-29); Chloride 107 mmol/L (96-108); Cholesterol 218 mg/dL (<200); Estimated Glomerular Filt Rate > 60; HDL Cholesterol 55 mg/dL (>40); Potassium 5.0 mmol/L (3.3-5.1); Sodium 140 mmol/L (135-145); Total Protein 5.4 g/dL (6.5-8.0); Triglycerides 155 mg/dL (<150)
[2024-10-12 12:20] LABS: Folate 7.3 ng/mL (> or = 4.0); Vitamin B12 323 pg/mL (200-900)
== END 2024-10-12 07:38 | disposition home or self-care (01) ==
LOC: HO.WFDLDS 07:37
PROVIDERS: Visit Provider Family Medicine
DX: Z00.00 Encounter for general adult medical examination without abnormal findings (principal); E55.9 Vitamin D deficiency, unspecified; Z12.5 Encounter for screening for malignant neoplasm of prostate; E53.8 Deficiency of other specified B group vitamins; Z13.6 Encounter for screening for cardiovascular disorders; Z12.31 Encounter for screening mammogram for malignant neoplasm of breast
CPT/HCPCS: 36415; 80053; 80061; 82306; 82607; 82746; 84153; 84443; 85025

== ENCOUNTER 2024-10-29 10:16 | Outpatient (AMB) | payer BC, SELFPAY ==
--- NOTE | 2024-10-29 10:37 | A.OFFPC_ITS ---
Vital Signs 10/29/24 10:43 Height 5 ft 9 in Weight 197 lb 8 oz BMI 29.2 BP 123/76 Blood Pressure Location Lt brachial Position Sitting Respiration 16 Pulse 82 Pulse Source Pulse Oximeter Temp 97.9 F Temp Source Oral Pulse Oximetry (%) 99 Oxygen Delivery Method Room Air Intake Visit Reasons: f/u labs via telemedicine Intake Note: patient here for lab review Communications Engineer Required: No Allergies No Known Allergies Allergy (Verified 10/29/24 10:41) Medication List - Last Reconciled 10/29/24 by Mekhi Muñoz MD atorvastatin 10 mg PO BEDTIME 90 days bupropion HCl XL (Wellbutrin XL) 150 mg PO QAM gabapentin 300 mg PO BID 30 days naltrexone 50 mg PO DAILY sertraline 100 mg PO DAILY trazodone 50 - 100 mg (1 - 2 x 50 mg) PO BEDTIME PRN Tobacco use date assessed: 10/29/24 Dental Screening Dental Screen Date: 10/29/24 Did you have a dental visit in the last 12 months?: No Did you have a dental problem in the last 6 months where you did not have access to dental care?: No Was dental information given to patient?: No HPI f/u labs via telemedicine HPI Details 59 y/o male presents to review labs. Had been following lipids. Also f/u L groin pain. Labs drawn 10/12/24. Reviewed labs with pt. Mild anemia. Denies any blood in stools or bleeding anywhere. Triglycerides 155. TC 218. LDL 132. HDL 55. PSA 0.34. Fasting glucose 101. Pt notes last EtOH drink was around September. HPI Comments History of Present Illness Details Documentation assistance for Mekhi Muñoz MD, was provided by Max Brooks,? Patient Relations Manager on 10/29/2024 at 11:04 AM OLIVER. I, Dr. Muñoz, have read, observed, and verified documentation. ?? PFSH Medical History (Updated 10/29/24 @ 11:04 by Max Brooks) Concussion Elevated cholesterol Frequent headaches Surgical History (Updated 10/19/23 @ 09:42 by Kim Tom RN) H/O hand surgery Social History Household Members: Other Household Members Other:: His dog Housing: House Comment: D/C 10/31 Patient Tobacco Use Status: Current everyday Tobacco user Cigarette Packs Per Day: 1 e-Cigarette/Vaping Use: Never Used Second Hand Smoke Exposure: No service: Yes Current occupational status: employed Current occupational exposures/hazards: No Cognitive needs: No Hearing needs: No Vision needs: No Questionnaire Thrive Questionnaire Date Thrive assessed: 02/13/24 I am a: Patient What is your living situation today?: I have a steady place to live Within the past 12 months, did the food you bought not last and you didn't have the money to get more?: Never true Within the past 12 months, did you worry whether your food would run out before you got money to buy more?: Never true Do you have trouble paying for medicines?: No Do you have trouble getting transportation to medical appointments?: No Do you have trouble paying your heating and electricity bill?: No Do you have trouble taking care of your child, family member or friend?: No Do you have trouble with day-to-day activities such as bathing, preparing meals, shopping, managing finances, etc.?: No Are you currently unemployed and looking for a job?: Yes Are you interested in more education?: No Please select the resources that you would like help with: None Currently or been in a relationship where the following occur: No concerns reported THRIVE Score: 0 LORRAINE-7 AMB Questionnaire LORRAINE-7 Date LORRAINE - 7 assessed: 11/11/23 Source: Developed by Drs. Bharat Hassan, Rachana Casas, Jose Madden and colleagues, with an educational charlette from [employer]. Review of Systems Const Denies chills, Denies fatigue, Denies fever(s), Denies headache(s) and Denies weakness ENT Denies dizziness and Denies headache(s) Card Denies dyspnea Resp Denies cough, Denies dyspnea, Denies wheezing and Denies other (shortness of breath) Musc Denies numbness and Denies tingling Neuro Denies dizziness, Denies headache(s), Denies numbness, Denies tingling and Denies weakness Psych Denies anxiety and Denies depression Endo Denies fatigue Aller/Immun Denies wheezing Physical exam (Primary Care) Vital Signs: Last Vital Signs Temp 97.9 F 10/29/24 10:43 Pulse 82 10/29/24 10:43 Resp 16 10/29/24 10:43 BP 123/76 10/29/24 10:43 Pulse Ox 99 10/29/24 10:43 Oxygen Delivery Method Room Air 10/29/24 10:43 BMI result Body Mass Index 29.2 Tobacco/Smoking Status: Tobacco use Status Tobacco use date assessed 10/29/24 10/29/24 10:44 Patient Tobacco Use Status Current everyday Tobacco 10/29/24 10:38 e-Cigarette/Vaping Use Never Used 10/29/24 10:38 Thrive Assessment: Date of Thrive Assessment Date Thrive assessed 02/13/24 10/29/24 10:38 Currently or been in a relationship where the following occur: No concerns reported Const General: well developed; No acute distress Nutritional Appearance: well nourished Orientation/consciousness: patient oriented x3 HENMT Head: Yes normocephalic and Yes atraumatic Eyes General: appearance normal, both eyes and all related structures Pupils: Equal, round and reactive pupils present EOM: EOMs intact bilaterally Resp Effort & Inspection: normal respiratory effort Auscultation: clear to auscultation bilaterally Cardio Rate: regular rate Rhythm: regular rhythm Heart sounds: S1 normal heart sound present, S2 normal heart sound present, no gallops, no murmurs and no rubs Neuro General: patient oriented x3 and gait normal Cranial nerves: Yes Equal, round and reactive pupils present Psych Affect: normal affect Coding Level of Care Code Est Pt Level 4 (80324) Diagnoses Mild anemia D64.9 Alcohol abuse F10.10 Mixed hyperlipidemia E78.2 Elevated fasting glucose R73.01 Assessment & Plan Assessment & Plan (1) Mild anemia: Code(s): D64.9 - Anemia, unspecified Category: Medical Plan: Mild anemia. Unclear cause. Patient drinking over a year ago Will recheck with next blood draw (2) Alcohol abuse: Code(s): F10.10 - Alcohol abuse, uncomplicated Category: Social Hx (3) Mixed hyperlipidemia: Code(s): E78.2 - Mixed hyperlipidemia Category: Medical Plan: Patient has stopped taking his atorvastatin due to cost He will try to resume this. May need take a little less consistently due cost Will recheck lipids next blood draw Encouraged diet low in saturated fats and cholesterol (4) Elevated fasting glucose: Code(s): R73.01 - Impaired fasting glucose Category: Medical Plan: Mildly elevated fasting blood sugar Recheck with next blood draw including A1c For going to diet low in sugars and starches Plan Left lower quadrant and groin pain has resolved. Was likely muscular. He would like to cancel physical therapy. Orders: Orders Hemoglobin A1c Today R73.01 - Impaired fasting glucose Ferritin Today D64.9 - Anemia, unspecified Comprehensive [place]. Panel Fast Today R73.01 - Impaired fasting glucose, Z00.00 - Encounter for general adult medical examination without abnormal findings Complete Blood Count Auto Diff Today D64.9 - Anemia, unspecified, Z00.00 - Encounter for general adult medical examination without abnormal findings IRON PROFILE Today D64.9 - Anemia, unspecified Reticulocyte Count Today D64.9 - Anemia, unspecified Medications: Changed From atorvastatin 10 mg PO BEDTIME 90 days 90 tabs 3RF cholesterol To atorvastatin 20 mg PO QPM 90 tabs 3RF cholesterol 90 days
[2024-10-29 10:43] VITALS: BP 123/76; PULSE 82; RESP 16; TEMP 36.6; O2SAT 99; BMI 29.2
--- OUTSIDE RECORDS SUMMARY | 2024-10-29 12:37 | XMS_ITS | Clinical Summary ---
Author Organization [facility] Address [address] [place] [phone] Phone Care Team Providers Care Keyboarding Clerk Name Role Phone Pcp, Unknown Primary Care Provider Unavailabl e Allergies No known active allergies Medications No known medications Encounters Date Type Department Care Team Description 08/23/2024 11:15 AM EDT Occupational Health [facility] at [address] [address] Bonnie Metz CNP from Last 3 Months [...] PPO CIGNA PPO CIGALTAF PPO Care Teams Keyboarding Clerk Relationship Specialty Start Date End Date Pcp, Unknown PCP - General 03/23/22 Additional Source Comments The information contained in this document represents components of the legal health record. It is not the complete legal health record.[facility]
== END 2024-10-29 11:19 | disposition home or self-care (01) ==
PROVIDERS: PCP Family Medicine; Visit Provider Family Medicine
DX: D64.9 Anemia, unspecified (principal); F10.10 Alcohol abuse, uncomplicated; E78.2 Mixed hyperlipidemia; R73.01 Impaired fasting glucose

== ENCOUNTER 2025-01-28 15:17 | Outpatient (REF) | payer BC, OTHER, SELFPAY ==
[2025-01-28 18:18] LABS: MANUAL DIFF FLAG NO
[2025-01-28 18:21] LABS: Hematocrit 41.9 % (42.0-52.0); Hemoglobin 14.0 g/dl (14.0-18.0); Imm Gran Abs Auto 0.06 X10*3/uL (0.00-0.03); Imm Gran Pct Auto 0.5 % (0.0-0.4); Lymphocytes Absolute Auto 2.5 X10*3/uL (1.2-4.9); Mean Corpuscular HGB Conc 33.4 g/dl (31.0-36.0); Mean Corpuscular Hemoglobin 28.8 pg (27.0-33.0); Mean Corpuscular Volume 86.2 fL (80.0-98.0); NRBC Abs Auto 0.000 X10*3/uL (0.0-0.012); NRBC Pct Auto 0.0 /100WBC (0.0-0.2); Platelet Count 303 X10*3/uL (160-400); Red Blood Count 4.86 X10*6/uL (4.60-5.80); Reticulocytes Absolute 0.079 X10*6/uL (0.026-0.095); White Blood Count 12.5 X10*3/uL (4.8-10.8)
--- OUTSIDE RECORDS SUMMARY | 2025-01-28 18:25 | XMS_ITS | Clinical Summary ---
Author Organization [facility] Address [address] [place], [place] [id number] Phone Care Team Providers Care Competitive Shopper Name Role Phone Pcp, Unknown Primary Care Provider Unavailabl e Allergies No known active allergies Medications No known medications Social History Tobacco Use Types Packs/Day Years [...] topic Medical Devices Not on file Insurance [facility] PPO CIGNA PPO CIGNA PPO CIGNA PPO CIGNA PPO CIGNA PPO Care Teams Competitive Shopper Relationship Specialty Start Date End Date Pcp, Unknown PCP - General 03/23/22 Additional Source Comments The information contained in this document represents components of the legal health record. It is not the complete legal health record.[facility]
[2025-01-28 18:51] LABS: Appearance Urine Clear; Glucose Urine UA Negative (Negative); PH 5.0 (5.0-9.0); Specific Gravity - Urine 1.020 (1.005-1.025)
[2025-01-28 19:01] LABS: Alanine Aminotransferase 36 U/L (0-40); Albumin Level 3.8 g/dL (3.5-5.0); Alkaline Phosphatase 69 U/L (39-117); Anion Gap 12 (12-20); Aspartate Amino Transferase 40 U/L (5-37); Blood Urea Nitrogen 11 mg/dL (9-16); Calcium 8.7 mg/dL (8.4-10.2); Carbon Dioxide 26 mmol/L (22-29); Chloride 108 mmol/L (96-108); Cholesterol 173 mg/dL (<200); Estimated Glomerular Filt Rate > 60; HDL Cholesterol 64 mg/dL (>40); Iron 43 mcg/dL (45-160); Percent Iron Saturation 15 % (15-50); Potassium 4.1 mmol/L (3.3-5.1); Sodium 142 mmol/L (135-145); Total Iron Binding Capacity 293 mcg/dL (228-428); Total Protein 5.8 g/dL (6.5-8.0); Triglycerides 191 mg/dL (<150); Unsaturated Iron Binding 250 ug/dL
[2025-01-28 19:03] LABS: Ferritin 44 ng/mL (20-250)
== END 2025-01-28 15:18 | disposition home or self-care (01) ==
LOC: HO.WFDLDS 15:17
PROVIDERS: Visit Provider Family Medicine
DX: Z00.00 Encounter for general adult medical examination without abnormal findings (principal); D64.9 Anemia, unspecified; E78.2 Mixed hyperlipidemia; R73.01 Impaired fasting glucose; I10 Essential (primary) hypertension
CPT/HCPCS: 36415; 80053; 80061; 81003; 82570; 82728; 83036; 83540; 85025; 85045

== ENCOUNTER 2025-01-29 14:17 | Outpatient (AMB) | payer BC, SELFPAY ==
--- NOTE | 2025-01-29 14:29 | MHC.PC.OV ---
Vital Signs 01/29/25 14:34 Height 5 ft 9 in Weight 204 lb 2 oz BMI 30.1 BP 102/68 Blood Pressure Location Rt brachial Position Sitting Respiration 15 Pulse 103 H Pulse Source Pulse Oximeter Temp 99 F Temp Source Temporal Artery Scan Pulse Oximetry (%) 94 Oxygen Delivery Method Room Air Intake Visit Reasons: f/u HLD/repeat labs Intake Note: Bartolo presents in the office today for a follow up to his cholesterol and repeat labs. Patient has a fall off the back of his truck. [employer] Required: No Allergies No Known Allergies Allergy (Verified 01/29/25 14:33) Tobacco use date assessed: 01/29/25 Dental Screening Dental Screen Date: 01/29/25 Did you have a dental visit in the last 12 months?: No Did you have a dental problem in the last 6 months where you did not have access to dental care?: No Was dental information given to patient?: Patient declined HPI f/u HLD/repeat labs HPI Details 59 y/o male presents to f/u HLD. Labs drawn 01/28/25. Reviewed labs with pt. Fasting glucose 112. A1c 6.1%. Triglycerides 191. TC 173. LDL improved from 132 to 71. HDL 64. He is on artovastatin 20mg daily. Denies any EtOH use. Complaints of R knee pain. [facility] Medical History (Updated 01/29/25 @ 15:11 by Mekhi Muñoz MD) Concussion Elevated cholesterol Frequent headaches Surgical History (Updated 10/19/23 @ 09:42 by Kim Tom RN) H/O hand surgery Social History (Updated 01/29/25 @ 14:34 by Marie Hankins CMA) Household Members: Other Household Members Other:: His dog Housing: House Alcohol intake: never Comment: D/C 10/31 Patient Tobacco Use Status: Former Tobacco user Cigarette Packs Per Day: 1 e-Cigarette/Vaping Use: Never Used Second Hand Smoke Exposure: No Use of substances other than those prescribed or required for medical reasons: No service: Yes Current occupational status: employed Current occupational exposures/hazards: No Cognitive needs: No Hearing needs: No Vision needs: No Questionnaire Thrive Questionnaire Date Thrive assessed: 02/13/24 I am a: Patient What is your living situation today?: I have a steady place to live Within the past 12 months, did the food you bought not last and you didn't have the money to get more?: Never true Within the past 12 months, did you worry whether your food would run out before you got money to buy more?: Never true Do you have trouble paying for medicines?: No Do you have trouble getting transportation to medical appointments?: No Do you have trouble paying your heating and electricity bill?: No Do you have trouble taking care of your child, family member or friend?: No Do you have trouble with day-to-day activities such as bathing, preparing meals, shopping, managing finances, etc.?: No Are you currently unemployed and looking for a job?: Yes Are you interested in more education?: No Currently or been in a relationship where the following occur: No concerns reported THRIVE Score: 0 LORRAINE-7 AMB Questionnaire LORRAINE-7 Date LORRAINE - 7 assessed: 11/11/23 Source: Developed by Drs. Bharat Hassan, Rachana Casas, Jose Madden and colleagues, with an educational charlette from [employer]. Review of Systems Const Denies chills, Denies fatigue, Denies fever(s), Denies headache(s) and Denies weakness ENT Denies dizziness and Denies headache(s) Card Denies dyspnea Resp Denies cough, Denies dyspnea, Denies wheezing and Denies other (shortness of breath) Musc Details: R knee pain Denies numbness and Denies tingling Neuro Denies dizziness, Denies headache(s), Denies numbness, Denies tingling and Denies weakness Psych Denies anxiety and Denies depression Endo Denies fatigue Aller/Immun Denies wheezing Physical exam (Primary Care) Vital Signs: Last Vital Signs Temp 99 F 01/29/25 14:34 Pulse 103 H 01/29/25 14:34 Resp 15 01/29/25 14:34 BP 102/68 01/29/25 14:34 Pulse Ox 94 01/29/25 14:34 Oxygen Delivery Method Room Air 01/29/25 14:34 BMI result Body Mass Index 30.1 Tobacco/Smoking Status: Tobacco use Status Tobacco use date assessed 01/29/25 01/29/25 14:36 Patient Tobacco Use Status Former Tobacco user 01/29/25 14:36 e-Cigarette/Vaping Use Never Used 01/29/25 14:34 Thrive Assessment: Date of Thrive Assessment Date Thrive assessed 02/13/24 01/29/25 14:29 Currently or been in a relationship where the following occur: No concerns reported Const General: well developed; No acute distress Nutritional Appearance: well nourished Orientation/consciousness: patient oriented x3 HENPA Head: Yes normocephalic and Yes atraumatic Eyes General: appearance normal, both eyes and all related structures Pupils: Equal, round and reactive pupils present EOM: EOMs intact bilaterally Resp Effort & Inspection: normal respiratory effort Neuro General: patient oriented x3 and gait normal Cranial nerves: Yes Equal, round and reactive pupils present Psych Affect: normal affect Coding Level of Care Code Est Pt Level 5 (16065) Diagnoses Mixed hyperlipidemia E78.2 Pre-diabetes R73.03 Elevated AST (SGOT) R74.01 Right knee pain M25.561 Unstable right knee M25.361 Knee effusion, right M25.461 Assessment & Plan Assessment & Plan (1) Mixed hyperlipidemia: Code(s): E78.2 - Mixed hyperlipidemia Category: Medical Plan: Lipids much improved with atorvastatin Continue atorvastatin as prescribed (2) Pre-diabetes: Code(s): R73.03 - Prediabetes Category: Medical Plan: A1c 6.1%. Pre diabetes range Encouraged diet low in sugars and starches (3) Elevated AST (SGOT): Code(s): R74.01 - Elevation of levels of liver transaminase levels Category: Medical Plan: Mildly elevated AST Patient denies any alcohol use May be secondary to dehydration and I encouraged increased hydration. Will follow-up with next blood draw (4) Right knee pain: Code(s): M25.561 - Pain in right knee Category: Medical (5) Unstable right knee: Code(s): M25.361 - Other instability, right knee Category: Medical (6) Knee effusion, right: Code(s): M25.461 - Effusion, right knee Category: Medical Plan Pain swelling and instability of right knee after varus injury and popping sensation. Concern for ligamentous injury and/or meniscal injury. Will give patient a crutch and a knee brace with greater rigidity. Light duty - can work while sitting. May ambulate short distances with crutches and no weight-bearing on right leg. Will get x-ray stat Urgent referral to ortho and will order MRI in parallel Orders: Orders MR knee RT wo con 01/29/25 M25.561 - Pain in right knee XR knee RT 3V 01/29/25 M25.561 - Pain in right knee Referrals Orthopedics Referral M25.361 - Other instability, right knee, M25.461 - Effusion, right knee, M25.561 - Pain in right knee
[2025-01-29 14:34] VITALS: BP 102/68; PULSE 103; RESP 15; TEMP 37.2; O2SAT 94; BMI 30.1
--- OUTSIDE RECORDS SUMMARY | 2025-01-29 15:36 | XMS_ITS | Clinical Summary ---
Author Organization [facility] Address [address] [place], [place] [id number] Phone Care Team Providers Care Guest Relations Associate Name Role Phone Pcp, Unknown Primary Care [...] topic Medical Devices Not on file Insurance [facility] PPO CIGNA PPO CIGNA PPO CIGNA PPO CIGNA PPO CIGNA PPO Care Teams Guest Relations Associate Relationship Specialty Start Date End Date Pcp, Unknown PCP - General 03/23/22 Additional Source Comments The information contained in this document represents components of the legal health record. It is not the complete legal health record.[facility]
== END 2025-01-29 15:18 | disposition home or self-care (01) ==
LOC: HO.HMCFM 14:18
PROVIDERS: PCP Family Medicine; Visit Provider Family Medicine
DX: E78.2 Mixed hyperlipidemia (principal); R73.03 Prediabetes; R74.01 Elevation of levels of liver transaminase levels; M25.561 Pain in right knee; M25.361 Other instability, right knee; M25.461 Effusion, right knee